=== PATIENT | male | born 1955 | race Caucasian/White ===

== ENCOUNTER 2017-03-07 13:01 | Emergency (ER) | payer SELFPAY ==
[~2017-03-07] VITALS: Ht 180.3 cm; Wt 86.0 kg
[2017-03-07 13:35] VITALS: BP 110/77
== END 2017-03-07 14:21 | disposition home or self-care (01) ==
LOC: ER 13:08
DX: F10.129 Alcohol abuse with intoxication, unspecified (principal); Y90.9 Presence of alcohol in blood, level not specified
CPT/HCPCS: 99283

== ENCOUNTER 2017-03-09 07:29 | Emergency (ER) | payer MEDICARE ==
[~2017-03-09] VITALS: Ht 167.6 cm; Wt 85.0 kg
[2017-03-09] MEDS ORDERED: ONDANSETRON HCL 4MG/2ML VIAL IV ONE (07:45)
[2017-03-09] MEDS ORDERED: SODIUM CHLORIDE 0.9% 1,000 ML IV ONE (07:45)
[2017-03-09] MEDS ORDERED: FAMOTIDINE 20MG/2ML VIAL IV SCH (07:45)
[2017-03-09 08:24] LABS: BASOPHILS % 0.4 % (0.0-2.0); EOSINOPHILS % 0.2 % (0.0-5.0); HEMATOCRIT. 45.3 % (42.0-52.0); HEMOGLOBIN. 15.7 g/dL (14.0-18.0); LYMPHOCYTES % 28.7 % (20.0-50.0); MEAN CORPUSCULAR HEMOGLOBIN 37.2 pg (28.0-32.0); MEAN CORPUSCULAR VOLUME 107.5 fL (80.0-94.0); MEAN PLATELET VOLUME 8.8 fl (7.4-10.4); MONOCYTES % 8.8 % (2.0-8.0); NEUTROPHILS % 61.9 % (40.0-76.0); PLATELET 209 x1000/uL (130-400); RED BLOOD CELL COUNT 4.21 mill/uL (4.7-6.1); RED CELL DISTRIBUTION WIDTH 21.1 % (11.6-14.6)
[2017-03-09 08:39] LABS: CARBON DIOXIDE 24 mEq/L (21-32); CHLORIDE 103 mEq/L (98-107); TROPONIN I < 0.02 ng/mL (0.00-0.04)
[2017-03-09 09:24] LABS: ETHANOL BLOOD 382 mg/dL
[2017-03-09] MEDS ORDERED: KETOROLAC 30MG/ML VIAL IV ONE (11:45)
[2017-03-09 13:54] LABS: CLARITY URINE CLEAR (CLEAR); COLOR URINE YELLOW (YELLOW); GLUCOSE URINE NEGATIVE (NEGATIVE); KETONES URINE TRACE (NEGATIVE); LEUKOCYTE ESTERASE URINE NEGATIVE (NEGATIVE); NITRITE URINE NEGATIVE (NEGATIVE); OCCULT BLOOD URINE NEGATIVE (NEGATIVE); PROTEIN URINE NEGATIVE (NEGATIVE); SPECIFIC GRAVITY URINE 1.011 (1.005-1.030); UROBILINOGEN URINE 0.2 E.U./dL (0.2-1.0)
[2017-03-09 14:11] LABS: *AMPHETAMINES SCREEN URINE NEGATIVE (NEGATIVE); *BARBITURATES SCREEN URINE NEGATIVE (NEGATIVE); *BENZODIAZEPINES SCREEN URINE NEGATIVE (NEGATIVE); *COCAINE SCREEN URINE NEGATIVE (NEGATIVE); CANNABINOID URINE SCREEN NEGATIVE (NEGATIVE); METHADONE URINE SCREEN NEGATIVE (NEGATIVE); OPIATES URINE SCREEN NEGATIVE (NEGATIVE); PHENCYCLIDINE URINE SCREEN NEGATIVE (NEGATIVE)
[2017-03-09 14:52] VITALS: BP 118/75
[2017-03-09] MEDS ORDERED: ONDANSETRON HCL 4MG TABLET PO ONE (15:45)
[2017-03-16 13:07] LABS: 7-AMINOCLONAZEPAM CONFIRM Negative (.); ALPRAZOLAM CONFIRM Negative (.); BARBITURATE SCREEN Negative ug/mL (Cutoff:0.1); BENZODIAZEPINE SCREEN Negative ng/mL (Cutoff:20); CHLORDIAZEPOXIDE CONFIRM Negative (.); CLONAZEPAM CONFIRM Negative (.); DESMETHYLCHLORDIAZEPOXIDE Negative (.); DIAZEPAM CONFIRM Negative (.); FLURAZEPAM CONFIRM Negative (.); LORAZEPAM CONFIRM Negative (.); MIDAZOLAM CONFIRM Negative (.); OPIATES SCREEN Negative ng/mL (Cutoff:5); OXAZEPAM CONFIRM Negative (.); PHENCYCLIDINE SCREEN Negative ng/mL (Cutoff:8); TEMAZEPAM CONFIRM Negative (.); TRIAZOLAM CONFIRM Negative (.)
== END 2017-03-09 16:05 | disposition home or self-care (01) ==
LOC: ER 07:53
DX: F10.129 Alcohol abuse with intoxication, unspecified (principal); R07.89 Other chest pain; R45.851 Suicidal ideations; E11.9 Type 2 diabetes mellitus without complications; Y90.8 Blood alcohol level of 240 mg/100 ml or more
CPT/HCPCS: 36415; 71010; 80048; 80305; 80307; 81003; 84484; 85025; 93005; 96374; 99285; C1893; G0482; J7030; Q0162; Z7610

== ENCOUNTER 2017-03-09 17:48 | Emergency (ER) | payer MEDICARE ==
[~2017-03-09] VITALS: Ht 182.9 cm; Wt 84.0 kg
[2017-03-09] MEDS ORDERED: ONDANSETRON HCL 4MG/2ML VIAL IV STA (18:29)
[2017-03-09] MEDS ORDERED: LORAZEPAM 2MG/ML CPJ IV ONE ×2 (18:30→20:30)
[2017-03-09] MEDS ORDERED: FOLIC ACID 1 MG, THIAMINE HCL 100 MG, MVI, ADULT NO.1 10 ML in DEXTROSE 5% WATER 1,000 ML IV ONE ×4 (18:30)
[2017-03-09 19:28] LABS: BASOPHILS % 0.9 % (0.0-2.0); EOSINOPHILS % 0.1 % (0.0-5.0); HEMATOCRIT. 44.4 % (42.0-52.0); HEMOGLOBIN. 15.5 g/dL (14.0-18.0); LYMPHOCYTES % 15.2 % (20.0-50.0); MEAN CORPUSCULAR HEMOGLOBIN 37.3 pg (28.0-32.0); MEAN CORPUSCULAR VOLUME 107.2 fL (80.0-94.0); MEAN PLATELET VOLUME 9.4 fl (7.4-10.4); MONOCYTES % 7.6 % (2.0-8.0); NEUTROPHILS % 76.2 % (40.0-76.0); PLATELET 179 x1000/uL (130-400); RED BLOOD CELL COUNT 4.14 mill/uL (4.7-6.1); RED CELL DISTRIBUTION WIDTH 21.2 % (11.6-14.6)
[2017-03-09] MEDS ORDERED: THIAMINE HCL 100 MG, MVI, ADULT NO.1 10 ML in DEXTROSE 5% WATER 1,000 ML IV NR ×3 (19:30)
[2017-03-09 19:37] LABS: INR 1.1; PROTHROMBIN TIME 11.8 sec (9.4-11.6)
[2017-03-09 19:43] LABS: CARBON DIOXIDE 21 mEq/L (21-32); CHLORIDE 102 mEq/L (98-107); CREATINE KINASE 195 IU/L (39-308); ETHANOL BLOOD 45 mg/dL
[2017-03-09 19:45] LABS: TROPONIN I < 0.02 ng/mL (0.00-0.04)
[2017-03-09] MEDS ORDERED: PIPERACILLIN/TAZ 3.375G PREMIX 50 ML IV ONE (19:45)
[2017-03-10] MEDS ORDERED: PIPERACILLIN/TAZ 3.375G PREMIX 50 ML IV SCH (00:45)
[2017-03-10] MEDS: LORAZEPAM 2MG/ML CPJ IV SCH ×2 (01:58→01:59)
[2017-03-10 06:00] VITALS: BP 109/72
== END 2017-03-10 06:00 | disposition home or self-care (01) ==
LOC: ER 18:28
DX: F10.239 Alcohol dependence with withdrawal, unspecified (principal); R91.8 Other nonspecific abnormal finding of lung field; R00.0 Tachycardia, unspecified; E11.9 Type 2 diabetes mellitus without complications; E78.00 Pure hypercholesterolemia, unspecified; I10 Essential (primary) hypertension; F17.210 Nicotine dependence, cigarettes, uncomplicated; Z98.890 Other specified postprocedural states
CPT/HCPCS: 36415; 71010; 80053; 82550; 83605; 84443; 84484; 85025; 85610; 87040; 93005; 96365; 96366; 96368; 96375; 96376; 99285; G0482; J2060; J2405; J2543; J3411; J3490; J7070; 80048; 80305; 80307; 81003; 96374; C1893; J7030; Q0162

== ENCOUNTER 2017-03-11 06:49 | Emergency (ER) | payer MEDICARE ==
[~2017-03-11] VITALS: Ht 175.3 cm; Wt 84.0 kg
[2017-03-11 08:14] LABS: EOSINOPHILS % 0.5 % (0.0-5.0); HEMATOCRIT. 40.5 % (42.0-52.0); HEMOGLOBIN. 14.1 g/dL (14.0-18.0); LYMPHOCYTES % 32.9 % (20.0-50.0); MEAN CORPUSCULAR HEMOGLOBIN 37.3 pg (28.0-32.0); MEAN CORPUSCULAR VOLUME 107.3 fL (80.0-94.0); MEAN PLATELET VOLUME 8.6 fl (7.4-10.4); MONOCYTES % 8.9 % (2.0-8.0); NEUTROPHILS % 56.7 % (40.0-76.0); PLATELET 125 x1000/uL (130-400); RED BLOOD CELL COUNT 3.77 mill/uL (4.7-6.1); RED CELL DISTRIBUTION WIDTH 20.7 % (11.6-14.6)
[2017-03-11 08:30] LABS: CARBON DIOXIDE 28 mEq/L (21-32); CHLORIDE 97 mEq/L (98-107); ETHANOL BLOOD 152 mg/dL
[2017-03-11] MEDS ORDERED: INSULIN REGULAR (HUMULIN R) 300UNITS/3ML SUBCUT NR (09:15)
[2017-03-11 09:25] LABS: CLARITY URINE CLEAR (CLEAR); COLOR URINE YELLOW (YELLOW); GLUCOSE URINE NEGATIVE (NEGATIVE); KETONES URINE NEGATIVE (NEGATIVE); LEUKOCYTE ESTERASE URINE NEGATIVE (NEGATIVE); NITRITE URINE NEGATIVE (NEGATIVE); OCCULT BLOOD URINE NEGATIVE (NEGATIVE); PROTEIN URINE NEGATIVE (NEGATIVE); SPECIFIC GRAVITY URINE 1.008 (1.005-1.030); UROBILINOGEN URINE 0.2 E.U./dL (0.2-1.0)
[2017-03-11 09:42] LABS: *AMPHETAMINES SCREEN URINE NEGATIVE (NEGATIVE); *BARBITURATES SCREEN URINE NEGATIVE (NEGATIVE); *BENZODIAZEPINES SCREEN URINE NEGATIVE (NEGATIVE); *COCAINE SCREEN URINE NEGATIVE (NEGATIVE); CANNABINOID URINE SCREEN NEGATIVE (NEGATIVE); METHADONE URINE SCREEN NEGATIVE (NEGATIVE); OPIATES URINE SCREEN NEGATIVE (NEGATIVE); PHENCYCLIDINE URINE SCREEN NEGATIVE (NEGATIVE)
[2017-03-11] MEDS: LORAZEPAM 1MG TABLET PO NR ×2 (10:14→10:15)
[2017-03-11] MEDS: QUETIAPINE FUMARATE 25MG TABLET PO SCH (21:19)
[2017-03-12] MEDS: QUETIAPINE FUMARATE 25MG TABLET PO SCH (09:00)
[2017-03-12] MEDS ORDERED: INSULIN REGULAR (HUMULIN R) 300UNITS/3ML SUBCUT ONE (14:30)
[2017-03-12 16:30] VITALS: BP 125/69
== END 2017-03-12 18:05 ==
LOC: ER 07:01
DX: R45.851 Suicidal ideations (principal); E11.9 Type 2 diabetes mellitus without complications; E78.00 Pure hypercholesterolemia, unspecified; I10 Essential (primary) hypertension; F17.200 Nicotine dependence, unspecified, uncomplicated; Z98.890 Other specified postprocedural states
CPT/HCPCS: 36415; 80053; 80305; 81003; 82962; 85025; 96372; 99285; G0482; J1815